=== PATIENT | female | born 1960 | race Caucasian/White ===

== ENCOUNTER 2017-09-13 17:43 | Emergency (ER) | payer SELFPAY ==
[~2017-09-13] VITALS: Ht 180.3 cm; Wt 87.1 kg
[2017-09-13] MEDS ORDERED: methylPREDNISolone 125 MG (Solu-MEDROL) VIAL IVP ONE (18:00)
[2017-09-13] MEDS ORDERED: FAMOTIDINE 20MG/2ML IV (PEPCID) IVP ONE (18:00)
[2017-09-13] MEDS ORDERED: diphenhydrAMINE 50 MG/ML INJ (BENADRYL) IVP ONE (18:00)
--- NOTE | 2017-09-13 18:06 | ED General ---
General Chief Complaint: Allergic Reaction Stated Complaint: EATING SHRIMP,PT FACE SWOLLEN NOW Nursing Triage Note: PT PRESENTS TO ED WITH SWELLING TO LEFT SIDE OF NECK. PT STATES SHE ATE SHRIMP AND THE SWELLING BEGAN WITHIN 2 MINUTES. PT STATES SHE HAS EATEN SHRIMP MANY TIMES IN THE PAST AND HAS NEVER HAD A REACTION. Nursing Sepsis Screen: No Definite Risk Source of Information: Patient, Other Exam Limitations: No Limitations History of Present Illness Date Seen by Provider: Sep 13, 2017 Time Seen by Provider: 17:56 Initial Comments Patient presents to the ER by private conveyance with her significant other and a chief complaint that she was eating some shrimp today by mouth or so ago and about 20 minutes later she started having swelling starting on the left side of her face back by her ear. She says she has a cracked tooth on that side for the last several weeks but hasn't bothered her she's had no pain or discharge in her mouth. She feels that her tongue is not swollen and her airway is not swollen. She has no vocal changes nor difficulty swallowing fluids or breathing. She she feels like her ear canal is closing off. She says is quite uncomfortable and painful. She has no allergy to naproxen which is actually a side effect leading to gastroesophageal reflux disease. Allergies and Home Medications Allergies Coded Allergies: No Known Drug Allergies (Unverified , 09/13/17) Patient Home Medication List Home Medication List Reviewed: Yes Review of Systems Constitutional: No chills, No diaphoresis, No fever, No malaise EENTM: No ear discharge, No hearing loss Respiratory: No cough, No short of breath Cardiovascular: No chest pain, No edema Gastrointestinal: No abdominal pain, No constipation, No diarrhea, No dysphagia , No loss of appetite Genitourinary: No discharge, No dysuria : No Musculoskeletal: No back pain, No joint pain Skin: see HPI; No pruritus, No rash Past [id number] Hx Patient Social History Alcohol Use: Denies Use Recreational Drug Use: No Recent Foreign Travel: No Contact w/Someone Who Travel: No Recent Infectious Disease Expo: No Physical Exam Vital Signs Vital Signs - First Documented 09/13/17 17:47 Temp 99.1 Pulse 108 Resp 14 B/P (MAP) 134/87 (103) O2 Delivery Room Air Capillary Refill : Less Than 3 Seconds General Appearance: No Apparent Distress, WD/WN Eyes: Bilateral Eye Normal Inspection, Bilateral Eye PERRL, Bilateral Eye EOMI HEENT: PERRL/EOMI, TMs Normal, TM Abnormal (L) (mild erythema without loss of landmarks, bulging or tenderness to manipulation); No Tonsillar Exudate, No Tonsillar Enlargement; Other (prominent submandibular glands and parotid swelling on the left that is tender to palpation with dental caries and gingivitis. No palpable area of fluctuance.) Neck: Full Range of Motion, Normal Inspection, Non Tender, Supple Respiratory: Chest Non Tender, Normal Breath Sounds, No Accessory Muscle Use, No Respiratory Distress Cardiovascular: Regular Rate, Rhythm, No Edema, Normal Peripheral Pulses Gastrointestinal: Normal Bowel Sounds, No Organomegaly, Non Tender, Soft Extremity: Normal Capillary Refill, Non Tender, No Calf Tenderness Neurologic/Psychiatric: Alert, Oriented x3, No Motor/Sensory Deficits, Normal Mood/Affect Skin: Normal Color, Warm/Dry Progress/Results/Core Measures Suspected Sepsis Recent Fever Within 48 Hours: No Infection Criteria Present: None New/Unexplained Altered Menta: No Sepsis Screen: No Definite Risk SIRS Temperature:99.1 Pulse: 108 Respiratory Rate: 14 Laboratory Tests 09/13/17 17:53: White Blood Count 9.8 Blood Pressure 134 /87 Mean: 103 Laboratory Tests 09/13/17 17:53: Creatinine 0.75, Platelet Count 312, Total Bilirubin 0.2 Results/Orders Lab Results Laboratory Tests Test 09/13/17 17:53 Range/Units White Blood Count 9.8 4.3-11.0 10^3/uL Red Blood Count 4.49 4.35-5.85 10^6/uL Hemoglobin 14.1 11.5-16.0 G/DL Hematocrit 42 35-52 % Mean Corpuscular Volume 93 80-99 FL Mean Corpuscular Hemoglobin 31 25-34 PG Mean Corpuscular Hemoglobin Concent 34 32-36 G/DL Red Cell Distribution Width 13.5 10.0-14.5 % Platelet Count 312 130-400 10^3/uL Mean Platelet Volume 11.4 H 7.4-10.4 FL Neutrophils (%) (Auto) 46 42-75 % Lymphocytes (%) (Auto) 42 12-44 % Monocytes (%) (Auto) 10 0-12 % Eosinophils (%) (Auto) 2 0-10 % Basophils (%) (Auto) 0 0-10 % Neutrophils # (Auto) 4.5 1.8-7.8 X 10^3 Lymphocytes # (Auto) 4.1 H 1.0-4.0 X 10^3 Monocytes # (Auto) 0.9 0.0-1.0 X 10^3 Eosinophils # (Auto) 0.2 0.0-0.3 10^3/uL Basophils # (Auto) 0.0 0.0-0.1 10^3/uL Sodium Level 139 135-145 MMOL/L Potassium Level 3.7 3.6-5.0 MMOL/L Chloride Level 100 98-107 MMOL/L Carbon Dioxide Level 27 21-32 MMOL/L Anion Gap 12 5-14 MMOL/L Blood Urea Nitrogen 12 7-18 MG/DL Creatinine 0.75 0.60-1.30 MG/DL Estimat Glomerular Filtration Rate > 60 BUN/Creatinine Ratio 16 Glucose Level 98 70-105 MG/DL Calcium Level 9.5 8.5-10.1 MG/DL Total Bilirubin 0.2 0.1-1.0 MG/DL Aspartate Amino Transf (AST/SGOT) 10 5-34 U/L Alanine Aminotransferase (ALT/SGPT) 9 0-55 U/L Alkaline Phosphatase 66 40-136 U/L Total Protein 6.9 6.4-8.2 GM/DL Albumin 4.2 3.2-4.5 GM/DL My Orders Orders - KARELY NEFF Ranitidine Injection (Zantac Injection) (09/13/17 18:15) Ondansetron Injection (Zofran Injectio (09/13/17 18:15) Loratadine Tablet (Claritin Tablet) (09/13/17 18:29) Ketorolac Injection (Toradol Injection) (09/13/17 18:30) Ceftriaxone Injection (Rocephin Injectio (09/13/17 18:30) Saline Lock/Iv-Start (09/13/17 18:50) Ns Iv 1000 Ml (Sodium Chloride 0.9%) (09/13/17 18:50) Promethazine Injection (Phenergan Injec (09/13/17 19:00) Medications Given in ED Current Medications Medications Dose Ordered Sig/Yanira Route Start Time Stop Time Status Last Admin Dose Admin Ceftriaxone Sodium 1000 mg/ Sodium Chloride 50 ml @ 100 mls/hr ONCE ONCE IV 09/13/17 18:30 09/13/17 18:59 DC 09/13/17 18:48 100 MLS/HR Diphenhydramine HCl 25 mg ONCE ONCE IVP 09/13/17 18:00 09/13/17 18:01 DC 09/13/17 18:09 25 MG Ketorolac Tromethamine 15 mg ONCE ONCE IVP 09/13/17 18:30 09/13/17 18:31 DC 09/13/17 18:45 15 MG Methylprednisolone Sodium Succinate 125 mg ONCE ONCE IVP 09/13/17 18:00 09/13/17 18:01 DC 09/13/17 18:11 125 MG Ondansetron HCl 4 mg ONCE ONCE IVP 09/13/17 18:15 09/13/17 18:16 DC 09/13/17 18:16 4 MG Promethazine HCl 25 mg ONCE ONCE IM/IV 09/13/17 19:00 09/13/17 19:01 DC 09/13/17 19:07 25 MG Vital Signs/I&O 09/13/17 17:47 Temp 99.1 Pulse 108 Resp 14 B/P (MAP) 134/87 (103) O2 Delivery Room Air Capillary Refill : Less Than 3 Seconds Blood Pressure Mean: 103 Progress Note #1: Time: 18:49 Progress Note Suspicious that this although it came on rapidly is not very similar to anaphylaxis. It is one-sided and has parotid swelling seems more in line with possible infectious versus obstructed gland duct. Running start some antibiotics and get her set up with dentist outpatient. We plan to observe her for another hour and give her some IV fluids and see if they antihistamines and steroids and see if they make any difference. We'll also give her some Phenergan since her nausea is only marginally improved with Zofran. Progress Note #2: Time: 19:48 Progress Note Examination is unchanged. Airway is still patent. Tongue is not swollen. She is able to swallow her secretions and talk just fine without dysphonia. Departure Impression Primary Impression: Abscess, dental Disposition: 01 HOME, SELF-CARE Condition: Stable Departure-Patient Inst. Decision time for Depature: 19:48 Referrals: ESVIN JOHNSON MD (PCP/Family) Primary Care Physician Patient Instructions: Tooth Abscess (DC) Add. Discharge Instructions: Please make plans to follow-up with a dentist tomorrow. supervisor [employer] the antibiotics and start taking them one capsule 3 times a day for the next week. All discharge instructions reviewed with patient and/or family. Voiced understanding. Scripts Promethazine HCl (Promethazine Tablet) 25 Mg Tablet 25 MG PO Q6H PRN for NAUSEA/VOMITING for 7 Days, #10 TAB 0 Refills Prov: KARELY NEFF 09/13/17 Hydrocodone Bit/Acetaminophen (Hydrocodone/Acetaminophen 5/325mg Tablet) 1 Tab Tab 1 EACH PO Q6H PRN for BREAKTHROUGH PAIN for 10 Days, #10 TAB 0 Refills Prov: KARELY NEFF 09/13/17 Amoxicillin (Amoxicillin) 500 Mg Capsule 500 MG PO TID, #21 CAP 0 Refills Prov: KARELY NEFF 09/13/17 KARELY NEFF Sep 13, 2017 18:06
[2017-09-13] MEDS ORDERED: raNItidine 50 MG/2 ML INJ (ZANTAC) IJ SCH (18:15)
[2017-09-13] MEDS ORDERED: ONDANSETRON 4 MG/2 ML (SDV) Z0FRAN IVP ONE (18:15)
[2017-09-13 18:24] LABS: BASOPHILS % (AUTO) 0 % (0-10); EOSINOPHILS # (AUTO) 0.2 10^3/uL (0.0-0.3); EOSINOPHILS % (AUTO) 2 % (0-10); HEMATOCRIT 42 % (35-52); HEMOGLOBIN 14.1 G/DL (11.5-16.0); LYMPHOCYTES # (AUTO) 4.1 X 10^3 (1.0-4.0); LYMPHOCYTES % (AUTO) 42 % (12-44); MEAN CORPUSCULAR HEMOGLOBIN 31 PG (25-34); MEAN CORPUSCULAR HGB CONC 34 G/DL (32-36); MEAN CORPUSCULAR VOLUME 93 FL (80-99); MEAN PLATELET VOLUME 11.4 FL (7.4-10.4); MONOCYTES # (AUTO) 0.9 X 10^3 (0.0-1.0); MONOCYTES % (AUTO) 10 % (0-12); NEUTROPHILS # (AUTO) 4.5 X 10^3 (1.8-7.8); NEUTROPHILS % (AUTO) 46 % (42-75); PLATELET COUNT 312 10^3/uL (130-400); RED BLOOD COUNT 4.49 10^6/uL (4.35-5.85); RED CELL DISTRIBUTION WIDTH 13.5 % (10.0-14.5); WHITE BLOOD COUNT 9.8 10^3/uL (4.3-11.0)
[2017-09-13] MEDS ORDERED: LORATADINE (CLARITIN) 10 MG TAB ONE (18:29)
[2017-09-13] MEDS ORDERED: KETOROLAC 30 MG/ML VIAL IVP ONE (18:30)
[2017-09-13] MEDS ORDERED: cefTRIAXone INJECTION 1,000 MG in NS (IVPB) 50 ML IV ONE (18:30)
[2017-09-13 18:38] LABS: ALANINE AMINOTRANSFERASE 9 U/L (0-55); ALBUMIN 4.2 GM/DL (3.2-4.5); ALKALINE PHOSPHATASE 66 U/L (40-136); BILIRUBIN,TOTAL 0.2 MG/DL (0.1-1.0); BUN/CREATININE RATIO 16; CALCIUM 9.5 MG/DL (8.5-10.1); CARBON DIOXIDE 27 MMOL/L (21-32); CHLORIDE 100 MMOL/L (98-107); CREATININE SERUM 0.75 MG/DL (0.60-1.30); GFR ESTIMATED > 60; GLUCOSE 98 MG/DL (70-105); POTASSIUM 3.7 MMOL/L (3.6-5.0); SODIUM 139 MMOL/L (135-145); TOTAL PROTEIN 6.9 GM/DL (6.4-8.2)
[2017-09-13] MEDS ORDERED: NS IV 1000 ML 1,000 ML IV SCH (18:50)
[2017-09-13] MEDS ORDERED: PROMETHAZINE INJ 25 MG/ML (PHENERGAN) AMP IM/IV ONE (19:00)
[2017-09-13] MEDS ORDERED: ACHD5005 PO (19:50)
[2017-09-13] MEDS ORDERED: PROM25TA14 PO (19:50)
[2017-09-13] MEDS ORDERED: AMOX500C2 PO (19:50)
[2017-09-13] MEDS ORDERED: RX-HYDROCODONE/APAP 5/325 MG #4 TAB PK PO PRN (20:00)
[2017-09-13 20:04] VITALS: BP 134/87
[2017-09-14] MEDS ORDERED: LORATADINE (CLARITIN) 10 MG TAB PO SCH (09:00)
== END 2017-09-13 20:04 | disposition home or self-care (01) ==
LOC: ER 17:45
DX: K04.7 Periapical abscess without sinus (principal)
CPT/HCPCS: 36415; 80053; 85025; 96361; 96365; 96375